=== PATIENT | female | born 1945 | race Caucasian/White ===

== ENCOUNTER 2016-12-05 16:25 | Inpatient (IN) ==
[2016-12-05] MEDS ORDERED: 0.9 % Sodium Chloride 1,000 ML IVC ONE ×2 (16:45→22:30)
--- NOTE | 2016-12-05 17:25 | Emergency Department Note ---
Disposition Clinical Impression: A-fib, HCAP (healthcare-associated pneumonia) Disposition: Admitted As Inpatient Condition: Fair Referrals: Andrez Thomas MD [Primary Care Provider] - Forms: ED Satisfaction Letter Time of Disposition: 19:53 SOB HPI - General Chief Complaint: ED Shortness of Breath/Dyspnea Stated Complaint: Pnuemonia,Low B/P Time Seen by Provider: 12/05/16 16:43 Source: patient Mode of arrival: ambulatory Limitations: no limitations Nursing Notes Reviewed: Yes Vital Signs Reviewed: Yes - History of Present Illness Patient presenting to the ED from her primary care physician's office for suspected pneumonia. Vision, states she has not felt well for about a week has had a fever of 101, documented at physician's office. Productive cough with yellow and green sputum , chest tightness and shortness of breath. Some nausea, no vomiting. No headache, changes in vision. States she has not had pneumonia before. About a week ago she had a robotic colon surgery by Dr. Roca was in the hospital for 2- 3 days. States she started feeling unwell after that. Also complaining of generalized weakness. - Related Data Home Medications Medication Instructions Recorded Confirmed Albuterol Sulfate [Albuterol 2 puff IH Q4HR PRN 11/07/16 12/05/16 Inhaler] Ascorbic Acid [Vitamin C] 1,000 mg PO DAILY 11/07/16 12/05/16 Aspirin 81 mg PO DAILY 11/07/16 12/05/16 Atorvastatin Calcium [Lipitor] 20 mg PO DAILY 11/07/16 12/05/16 Mv-Mn/FA/Vit K/Lycop/Lut/Coq10 1 tab PO DAILY 11/07/16 12/05/16 [Daily Multivitamin Capsule] Albuterol Neb [Proventil Neb] 2.5 mg IH Q4H PRN 12/05/16 12/05/16 Previous Rx's Medication Instructions Recorded Oxycodone HCl/Acetaminophen 1 each PO Q6HR PRN #24 tablet 11/28/16 [Percocet 5-325 mg Tablet] Allergies Allergy/AdvReac Type Severity Reaction Status Date / Time No Known Allergies Allergy Verified 12/05/16 16:32 All systems ED: reviewed and negative except as stated. Constitutional: Reports: fever, chills, weakness Eyes: Denies: vision change Cardiovascular: Reports: chest pain Respiratory: Reports: cough, dyspnea, sputum production Gastrointestinal: Reports: nausea. Denies: abdominal pain, vomiting Musculoskeletal: Denies: back pain Neurological: Denies: headache Past Medical History - Past Medical History Attestation: Yes The following information was validated with the patient. Source: patient Medical history: Reports: asthma, COPD, CVA, hyperlipidemia, hypertension Surgical history: Reports: appendectomy, orthopedic, other Psychiatric history: Reports: no psych history - Social History Smoking Status: Current every day smoker Smokeless Tobacco Status: No Alcohol use: Reports: none Drug use: Reports: none Physical Exam - General Limitations: no limitations General appearance: alert, in no apparent distress - Head Head exam: atraumatic, normocephalic, normal inspection - Respiratory Respiratory exam: Present: other (Course breath sounds bilaterally). Absent: normal lung sounds bilaterally - Cardiovascular Cardiovascular exam: Present: tachycardia, irregular rhythm. Absent: systolic murmur - Abdominal Exam Abdominal exam: Present: soft, Non-Tender. Absent: tenderness, distention, guarding, rebound, rigidity - Extremities Exam Extremities exam: Present: normal inspection, full ROM. Absent: tenderness, pedal edema - Back Exam Back exam: Present: normal inspection, full ROM. Absent: tenderness - Neurological Exam Neurological exam: Present: alert, oriented X3 - Psychiatric Psychiatric exam: Present: normal affect, normal mood - Skin Skin exam: Present: warm, dry, intact, normal color Course - Reevaluation(s) Reevaluation #1: Patient has bilateral pneumonia, new onset A. fib with RVR. Heart rate improved after fluids. Unsure of her EF. Patient also hypoxic initially saturating well on 2 L of oxygen. Could potentially be hospital-acquired pneumonia due to recent surgery. We will treat as such and admit to the hospitalist service. Magnesium was also low, so we will replace that. We will hold off on any calcium channel milagro or beta milagro at this time to see how she responds to fluids and antibiotics. Family and patient agreeable with admission Time: 19:51 Vital Signs Temperature 99.0 F 12/05/16 16:30 Pulse Rate 168 12/05/16 16:30 Respiratory Rate 18 12/05/16 16:30 Blood Pressure 98/68 12/05/16 16:30 O2 Sat by Pulse Oximetry 90 12/05/16 16:30 Temperature 99.0 F 12/05/16 16:30 Pulse Rate 168 12/05/16 16:30 Respiratory Rate 18 12/05/16 16:30 Blood Pressure 98/68 12/05/16 16:30 O2 Sat by Pulse Oximetry 90 12/05/16 16:30 Oxygen Delivery Oxygen Delivery Room Air Shortness of Breath/Dyspnea - Medical Records Medical records reviewed: Yes I reviewed the patient's medical records. - Lab Data Lab results reviewed: Yes I reviewed the patient's lab results. Result diagrams: 12/05/16 17:26 12/05/16 17:26 Lab Results 12/05/16 12/05/16 12/05/16 Range/Units 16:52 17:26 17:26 WBC 11.5 H (4.3-11.1) K/mcL RBC 3.89 (3.82-4.97) M/mcL Hgb 12.3 (11.5-15.4) g/dL Hct 38.4 (35.3-44.9) % MCV 98.7 (83.0-100.0) fL MCH 31.6 (28.0-33.3) pg MCHC 32.0 (31.6-35.5) g/dL RDW 12.7 (11.5-14.5) % Plt Count 209 (140-400) K/mcL MPV 10.1 (9.4-12.4) fL Immature Gran % 0.5 (0-4) % Seg Neutrophils % 75.6 % Lymphocytes % 12.5 % Monocytes % 11.0 % Eosinophils % 0.1 % Basophils % 0.3 % Neutrophils # 8.7 (1.6-8.9) K/mcL Lymphocytes # 1.4 (0.6-4.6) K/mcL Monocytes # 1.3 (0.0-1.3) K/mcL Eosinophils # 0.0 (0.0-0.6) K/mcL Basophils # 0.0 (0.0-0.2) K/mcL Immature Plt Fraction 3.9 (1.1-6.1) % Sodium 136 (136-145) mEq/L Potassium 4.1 (3.5-4.5) mEq/L Chloride 100 (98-109) mEq/L Carbon Dioxide 26 (19-29) mEq/L BUN 10 (7-20) mg/dL Creatinine 0.60 (0.57-1.11) mg/dL Est GFR ( Amer) > 60 (> 60) Est GFR (Non-Af Amer) > 60 (> 60) BUN/Creatinine Ratio 17 (6-26) Glucose 100 H (70-99) mg/dL Calculated Osmolality 281 (280-300) Lactic Acid (0.5-2.2) mmol/L Calcium 8.8 (8.6-10.8) mg/dL Magnesium 1.1 L (1.6-2.6) mg/dL Troponin I (0-0.03) ng/mL TSH 0.657 (0.350-4.840) mcIU/mL Specimen Rejected MCV Delta 12/05/16 12/05/16 Range/Units 17:26 17:26 WBC (4.3-11.1) K/mcL RBC (3.82-4.97) M/mcL Hgb (11.5-15.4) g/dL Hct (35.3-44.9) % MCV (83.0-100.0) fL MCH (28.0-33.3) pg MCHC (31.6-35.5) g/dL RDW (11.5-14.5) % Plt Count (140-400) K/mcL MPV (9.4-12.4) fL Immature Gran % (0-4) % Seg Neutrophils % % Lymphocytes % % Monocytes % % Eosinophils % % Basophils % % Neutrophils # (1.6-8.9) K/mcL Lymphocytes # (0.6-4.6) K/mcL Monocytes # (0.0-1.3) K/mcL Eosinophils # (0.0-0.6) K/mcL Basophils # (0.0-0.2) K/mcL Immature Plt Fraction (1.1-6.1) % Sodium (136-145) mEq/L Potassium (3.5-4.5) mEq/L Chloride (98-109) mEq/L Carbon Dioxide (19-29) mEq/L BUN (7-20) mg/dL Creatinine (0.57-1.11) mg/dL Est GFR ( Amer) (> 60) Est GFR (Non-Af Amer) (> 60) BUN/Creatinine Ratio (6-26) Glucose (70-99) mg/dL Calculated Osmolality (280-300) Lactic Acid 0.9 (0.5-2.2) mmol/L Calcium (8.6-10.8) mg/dL Magnesium (1.6-2.6) mg/dL Troponin I 0.01 (0-0.03) ng/mL TSH (0.350-4.840) mcIU/mL Specimen Rejected - Radiology Data Radiology results reviewed: Yes I reviewed the patient's radiology results. - EKG Data EKG attestation: Yes I reviewed and interpreted this EKG. EKG results narrative: A. fib with RVR, rate 163, QRS 85, QTC 350, normal axis, diffuse ST segment depression, but no acute ischemic changes. Previous EKG shows sinus rhythm, rate 78 on 11/22/16
--- NOTE | 2016-12-05 17:25 | Emergency Department Note ---
START Narrative - START START: I examined this patient and my medical decision-making was reviewed with the VISUAL DESIGN LEAD/PA/Advanced Practice Nurse/Resident Physician. I agree with the documented findings, disposition and treatment plan as described except to the extent set forth below. ED attending note: Patient seen with emergency medicine resident Dr. ORTA. We independently evaluated the patient. We independently had [id number] contact with the patient. Please see a copy of his note for details of the history and physical, evaluation, management and disposition of this emergency Department patient. Briefly: 71 old female recently status post robotic bowel resection comes in with cough and mild shortness of breath. Borderline low blood pressure to systolic of 98. Patient get a CT to exclude pulmonary embolus him. And other screening labs. An IV fluid bolus. Providing 45 minutes critical care services to this patient. Disposition pending.
[2016-12-05 17:39] LABS: Basophils % 0.3 %; Eosinophils % 0.1 %; Hematocrit 38.4 % (35.3-44.9); Immature Granulocytes % 0.5 % (0-4); Immature Platelets 3.9 % (1.1-6.1); Lymphocytes # 1.4 K/mcL (0.6-4.6); Lymphocytes % 12.5 %; Mean Corpuscular Hemoglobin 31.6 pg (28.0-33.3); Mean Corpuscular Volume 98.7 fL (83.0-100.0); Mean Platelet Volume 10.1 fL (9.4-12.4); Monocytes # 1.3 K/mcL (0.0-1.3); Neutrophils # 8.7 K/mcL (1.6-8.9); Platelet Count 209 K/mcL (140-400); Red Blood Count 3.89 M/mcL (3.82-4.97); Red Cell Distribution Width 12.7 % (11.5-14.5); Segmented Neutrophils % 75.6 %
[2016-12-05 17:40] LABS: Hemoglobin 12.3 g/dL (11.5-15.4)
[2016-12-05 17:51] LABS: BUN/Creatinine Ratio 17 (6-26); Blood Urea Nitrogen 10 mg/dL (7-20); Calcium 8.8 mg/dL (8.6-10.8); Carbon Dioxide 26 mEq/L (19-29); Chloride 100 mEq/L (98-109); Glucose 100 mg/dL (70-99); Osmolality,Calculated 281 (280-300); Potassium 4.1 mEq/L (3.5-4.5); Sodium 136 mEq/L (136-145); eGFR For African Americans > 60 (> 60); eGFR For Non-African Americans > 60 (> 60)
[2016-12-05 18:01] LABS: Magnesium 1.1 mg/dL (1.6-2.6)
[2016-12-05 18:28] LABS: Thyroid Stimulating Hormone 0.657 mcIU/mL (0.350-4.840)
[2016-12-05] MEDS ORDERED: Piperacillin/Tazobactam 4.5 GM in D5% in Water (Mini-Bag+) 100 ML IVPB ONE (19:37)
[2016-12-05] MEDS ORDERED: Vancomycin 1,000 MG in D5% in Water 250 ML IVPB ONE (19:37)
[2016-12-05] MEDS ORDERED: Levofloxacin 750 MG/150 ML 750 MG/150 ML BAG IVPB ONE (19:37)
--- NOTE | 2016-12-05 20:50 | Internal Med History&Physical ---
Date of Encounter: 12/06/16 Time of Encounter: 20:15 Assessment and Plan (1) Sepsis Current visit: Yes Status: Acute Patient presents to [facility] with report of productive cough, fever, after recent bowel resection surgery one week ago. Found to be in atrial fibrillation with RVR at presentation and slightly hypotensive but not far from her baseline. Lactic acid normal and hypotension could be due to a fibrillation with RVR, not necessarily sepsis. Patient has been having low normal blood pressures since presentation to [place], around 100/60. She has received 2 L fluid bolus so far with mild improvement seen in patient blood pressure. It did appear as if patient blood pressure improved after improvement the patient heart rate seen. Patient hypertension likely related to tachycardia, but could also be due to sepsis. She has no known history of CHF, CKD, or cirrhosis. We will start vancomycin, Zosyn, Levaquin Tylenol as needed for fever We will monitor white count with daily CBC Patient given 2 L bolus normal saline we will continue fluids at 100 mL an hour Consider additional fluid boluses if continued hypertension is seen Treated for COPD exacerbation Continuous pulse oximetry Sputum cultures, respiratory culture, blood cultures, strep/Legionella antigens , influenza antigen Qualifiers: Sepsis type: sepsis due to unspecified organism Qualified Code(s): A41.9 - Sepsis, unspecified organism (2) HCAP (healthcare-associated pneumonia) Current visit: Yes Status: Acute Likely pneumonia seen on chest CT, given patient recent hospitalization for partial bowel resection one week ago, will treat as healthcare acquired pneumonia. Plan as above (3) Atrial fibrillation with RVR Current visit: Yes Status: Acute Patient present with heart rate in the 160s, has since improved spontaneously and is now down to 110. Patient rhythm is still irregular. Atrial fibrillation is new to this patient, her current RVR likely due to current respiratory status/infection. We will start heparin drip Consider digoxin if continued spikes in heart rate because of patient blood pressure We will monitor patient heart rate/rhythm the continuous telemetry (4) Hypotension Current visit: Yes Status: Acute As above Qualifiers: Hypotension type: unspecified hypotension type Qualified Code(s): I95.9 - Hypotension, unspecified (5) COPD exacerbation Current visit: Yes Status: Acute Although patient not having any shortness of breath, appears slightly hypoxic with increased oxygen need, wheezes on auscultation, and appearance of pneumonia (HAP) on CT examination. Will treat as COPD exacerbation. Breathing treatments with duo nebs scheduled every 4 hours and when necessary 40 mg Solu-Medrol every 6 hours Patient on Levaquin, echo mycin, and Zosyn as she been for HAP (6) S/P laparoscopic colectomy Current visit: No Status: Acute Patient 1 week status post robotic, laparoscopic partial colectomy due to unresectable, precancerous polyps seen on colonoscopy. Patient is postop follow -up with Dr. Roca tomorrow to assess potential removal of surgical christi. We will ask front office secretary contact Dr. Roca tomorrow to assess his desire to see patient Surgical incisions appear intact, well-healed, clean, dry, without induration and some slight ecchymoses surrounding (7) Hypomagnesemia Current visit: Yes Status: Acute Patient should have magnesium of 1.1 with admission lab work. Given 2 g supplement magnesium. We will reassess patient magnesium in a.m. and consider additional magnesium supplementation at that time (8) DVT prophylaxis Current visit: Yes Status: Acute Patient will be placed on heparin drip on account of new onset atrial fibrillation with RVR Internal Medicine - H&P: HPI Chief complaint: Cough, fever, a. fib rvr, and hypotension Admitted From: Home Plans for Post Hospital Care: Home History of present illness: Ms. Steinberg is a 71 year old female with prior medical history of asthma, COPD, prior CTA, in one week status post bowel resection who presents to [facility] after having worsening cough and fever. Patient underwent robotic bowel resection one week ago with Dr. Roca, and his postop follow-up tomorrow, because of unresectable, precancerous polyps seen on colonoscopy. She reports that since the procedure she has been having worsening cough that has been productive of yellow/green phlegm. This is worsening for the past week patient reports that she has had fever at home with high 101.3. She does not complain of any shortness of breath, but states she feels some fatigue as well as weakness when ambulating. She denies any mental status changes or loss of consciousness, denies chest pain, denies feeling faint or lightheadedness. She denies any urinary symptoms, constipation/diarrhea, blood in her stool. Past Med Surg Social Fam HX - Past Medical History Medical history: asthma, COPD, CVA, hyperlipidemia, hypertension Psychiatric history: no psych history - Past Surgical History Surgical History: appendectomy, orthopedic, other - Social History Smoking Status: Current every day smoker Smokeless Tobacco Status: No Alcohol use: none Drug use: none Internal Medicine - H&P: Meds Albuterol Sulfate [Albuterol Inhaler] 2 puff IH Q4HR PRN 11/07/16 [History] Ascorbic Acid [Vitamin C] 1,000 mg PO DAILY 11/07/16 [History] Aspirin 81 mg PO DAILY 11/07/16 [History] Atorvastatin Calcium [Lipitor] 20 mg PO DAILY 11/07/16 [History] Mv-Mn/FA/Vit K/Lycop/Lut/Coq10 [Daily Multivitamin Capsule] 1 tab PO DAILY 11/07 [History] Oxycodone HCl/Acetaminophen [Percocet 5-325 mg Tablet] 1 each PO Q6HR PRN #24 tablet 11/28/16 [Rx] Albuterol Neb [Proventil Neb] 2.5 mg IH Q4H PRN 12/05/16 [History] 3 Allergy/AdvReac Type Severity Reaction Status Date / Time No Known Allergies Allergy Verified 12/05/16 16:32 Review of systems: Gen: Denies fever, denies chills, denies weakness, reports fatigue CV: Denies chest pain, denies exertional chest pain or dyspnea, denies palpitations Resp: Denies shortness of breath, denies dyspnea, denies pleuritic pain, reports cough productive of greenish sputum, denies wheeze GI: Denies nausea, denies vomiting, denies abdominal pain, denies constipation, denies diarrhea, denies hematochezia, denies melena MSK: denies arthralgia, reports general fatigue and weakness with exertion Neuro: Denies headache, denies confusion, denies focal weakness, denies numbness , denies tingling, denies vision changes Skin: Denies bruising, denies rash : Denies flank pain, denies dysuria, denies hematuria - Constitutional Vitals: Temp Pulse Resp BP Pulse Ox 99.0 F 110 26 105/63 94 12/05/16 16:30 12/05/16 20:30 12/05/16 20:44 12/05/16 20:44 12/05/16 20:30 Exam: General: Cooperative, pleasant, no acute distress, alert and oriented 3, answers questions appropriately HEENT: Normocephalic, atraumatic, neck supple, trachea midline, Conjunctiva pink , sclera anicteric, PERRL, oral mucosa moist, no orophargeal erythema or exudates Respiratory: No accessory muscle usage, mild right basilar rales on auscultation Cardiovascular: Irregular rhythm, tachycardia, S1 and S2 present, no murmurs/ rubs/gallops/clicks appreciated GI/abdominal: Nondistended, nontender, soft, normal bowel sounds, no peritoneal signs, for healed/healing surgical incisions are closed with christi, intact, dry, no erythema or induration Extremities: No calf tenderness, noncyanotic, no pedal edema appreciated, warm, lower extremity pulses palpable and symmetrical Neurological: Alert and oriented 3, no facial droop, no focal deficits Skin: Dry, healing surgical incisions on abdomen with christi, intact, with slight bruising surrounding Internal Med - H&P Results - Labs CBC & Chem 7: 12/05/16 17:26 12/05/16 17:26
[2016-12-05] MEDS ORDERED: *HR* Heparin 5,000 UNIT/ML VIAL IVP ONE (20:51)
[2016-12-05] MEDS ORDERED: Naloxone 0.4 MG/ML INJ IVP PRN (20:51)
[2016-12-05] MEDS ORDERED: Ondansetron 4 MG/2 ML VIAL IVP PRN (20:51)
[2016-12-05] MEDS ORDERED: *HR* Heparin 5,000 UNIT/ML VIAL IVP PRN ×2 (20:51)
[2016-12-05] MEDS ORDERED: Acetaminophen 325 MG TABLET PO PRN (20:51)
[2016-12-05] MEDS ORDERED: Ipratropium/Albuterol Neb 3 ML IH PRN (20:58)
[2016-12-05] MEDS ORDERED: Vancomycin (wt based) 1,000 MG VIAL IVPB SCH (21:00)
[2016-12-05] MEDS ORDERED: *HR* OxyCODONE/APAP 5/325 TABLET PO PRN (21:00)
[2016-12-05] MEDS: Heparin 25,000 UNIT/500 ML D5W 25,000 UNIT/500 ML MLS IVC SCH (22:07)
[2016-12-05] MEDS: 0.9 % Sodium Chloride 1,000 ML IVC SCH (22:12)
--- NOTE | 2016-12-05 23:06 | Event Note ---
Date of Encounter: 12/05/16 Time of Encounter: 23:04 Patient and examined with biomedical service engineer. Will treat for healthcare associated pneumonia. She also has new onset a fib. ChadVasc score is at least 4 Due to age prior CVA and female. When anticoagulated the patient. Cardiology input for new onset AFib. No obvious contraindication to anticoagulation. She had history of precancerous polyp and that was removed
[2016-12-06] MEDS ORDERED: Piperacillin/Tazobactam 3.375 GM in D5% in Water (Mini-Bag+) 100 ML IVPB SCH
[2016-12-06] MEDS ORDERED: Ipratropium/Albuterol Neb 3 ML IH SCH
[2016-12-06] MEDS: MethylPREDNISolone 40 MG/ML VIAL IVP SCH ×4 (00:30→17:36)
[2016-12-06] MEDS: Piperacillin/Tazobactam 3.375 GM in D5% in Water (Mini-Bag+) 100 ML IVPB SCH ×3 (02:47→17:48)
[2016-12-06 06:01] LABS: Basophils % 0.1 %; Hematocrit 38.7 % (35.3-44.9); Hemoglobin 12.5 g/dL (11.5-15.4); Immature Granulocytes % 0.4 % (0-4); Lymphocytes # 0.6 K/mcL (0.6-4.6); Mean Corpuscular HGB Conc 32.3 g/dL (31.6-35.5); Mean Corpuscular Hemoglobin 32.6 pg (28.0-33.3); Mean Corpuscular Volume 100.8 fL (83.0-100.0); Mean Platelet Volume 10.1 fL (9.4-12.4); Monocytes # 0.1 K/mcL (0.0-1.3); Monocytes % 1.4 %; Neutrophils # 6.2 K/mcL (1.6-8.9); Platelet Count 184 K/mcL (140-400); Red Blood Count 3.84 M/mcL (3.82-4.97); Red Cell Distribution Width 12.7 % (11.5-14.5); Segmented Neutrophils % 89.1 %
[2016-12-06 06:12] LABS: BUN/Creatinine Ratio 15 (6-26); Blood Urea Nitrogen 9 mg/dL (7-20); Calcium 8.6 mg/dL (8.6-10.8); Carbon Dioxide 28 mEq/L (19-29); Chloride 104 mEq/L (98-109); Glucose 157 mg/dL (70-99); Magnesium 1.6 mg/dL (1.6-2.6); Osmolality,Calculated 292 (280-300); Phosphorous 2.8 mg/dL (2.3-4.7); Potassium 4.3 mEq/L (3.5-4.5); Sodium 140 mEq/L (136-145); eGFR For African Americans > 60 (> 60); eGFR For Non-African Americans > 60 (> 60)
[2016-12-06] MEDS: Vancomycin 1,000 MG in D5% in Water 250 ML IVPB SCH ×2 (06:43→20:38)
[2016-12-06] MEDS: Aspirin 81 MG TAB.CHEW PO SCH ×2 (09:13→13:44)
[2016-12-06] MEDS: Ascorbic Acid 500 MG TABLET PO SCH ×2 (09:13→13:43)
[2016-12-06] MEDS: Pantoprazole 40 MG VIAL IVP SCH (09:13)
[2016-12-06] MEDS: Multivit/Ca/Min/Fe/FA 1 TAB TABLET PO SCH ×2 (09:13→13:42)
--- NOTE | 2016-12-06 10:00 | Cardiology Consult Note ---
Date of Encounter: 12/06/16 Time of Encounter: 09:10 Assessment and Plan (1) Atrial fibrillation with RVR Current Visit: Yes Status: Acute -[id number] score of 5 points (age, sex, HTN, CVA) puts pt at moderate-high risk for stroke, making her a candidate for anticoagulation. -Currently anticoagulated with IV heparin. -Plan to put on anticoagulation as an outpatient, preferably with new oral anticoagulant agent like Xarelto. -Echo ordered to determine whether or not valvular dysfunction is present and what pt's LVEF is. No previous echo for comparison found. -Cardizem 30mg PO q6h for rhythm control. First dose to be given prior to echo. -Continue cardiac monitoring. Discussion w patient/family: The assessment and plan as outlined above was discussed with the patient and/or family members who expressed understanding and agreement. All questions were answered. Thank you for involving us in the care of your patient. Please call with any questions. History of Present Illness Consult date: 12/06/16 Requesting physician: Sharan Laughlin Consult reason: new onset Afib with RVR History of present illness: -Ms. Steinberg is a 71 year old female with recent h/o colon surgery and PMH of HTN, CVA, HLD, COPD, and asthma who presented to [place] ED yesterday after seeing PCP with c/o CP, cough with purulent sputum, SOB, chills, and generalized weakness with temp 101 F. On her arrival to the ED she was found to have tachycardia (168 bpm), borderline low BP (98/68), SpO2 90%, and new onset Afib with RVR. IV fluids were given, pt's blood pressure and heart rate improved , and she was placed on supplemental oxygen 2L nasal cannula. -EKG showed Afib with RVR, diffuse ST segment depression, normal axis, and no acute ischemic changes. EKG performed on 11/22/16 showed normal sinus rhythm and normal rate. Her CXR was read as suspicious for pneumonia showing right basilar airspace disease. CT angiogram performed, showed no evidence for pulmonary embolism, but there was right-sided effusion (greater on right side) with bibasilar airspace disease. -Cardiology consult made for new onset Afib with RVR. Based on pt's risk factors (age, sex, HTN, CVA) and [id number] score, she is at moderate risk for another stroke. Past Med Surg Social Fam HX - Past Medical History Medical history: asthma, COPD, CVA, hyperlipidemia, hypertension Psychiatric history: no psych history - Past Surgical History Surgical History: appendectomy, orthopedic, other - Social History Smoking Status: Current every day smoker Smokeless Tobacco Status: No Alcohol use: none Drug use: none Medications and Allergies Albuterol Sulfate [Albuterol Inhaler] 2 puff IH Q4HR PRN 11/07/16 [History] Ascorbic Acid [Vitamin C] 1,000 mg PO DAILY 11/07/16 [History] Aspirin 81 mg PO DAILY 11/07/16 [History] Atorvastatin Calcium [Lipitor] 20 mg PO DAILY 11/07/16 [History] Mv-Mn/FA/Vit K/Lycop/Lut/Coq10 [Daily Multivitamin Capsule] 1 tab PO DAILY 11/07 [History] Oxycodone HCl/Acetaminophen [Percocet 5-325 mg Tablet] 1 each PO Q6HR PRN #24 tablet 11/28/16 [Rx] Albuterol Neb [Proventil Neb] 2.5 mg IH Q4H PRN 12/05/16 [History] 3 Allergy/AdvReac Type Severity Reaction Status Date / Time No Known Allergies Allergy Verified 12/05/16 16:32 All Systems Review: A 10-system review of systems was performed and is negative for pertinent findings except as documented above in the HPI. - Constitutional Constitutional: no chills, no fatigue, no fever(s) - Cardiovascular Cardiovascular: no chest pain at rest, no chest pain with exertion, no diaphoresis, no dyspnea at rest, no dyspnea on exertion, no irregular heart rhythm, no leg edema, no palpitations, no rapid heart rate - Respiratory Respiratory: cough, dyspnea (greatly improved since yesterday), no wheezing - Gastrointestinal Gastrointestinal: other (no emesis), no abdominal pain, no constipation, no diarrhea, no nausea Physical Examination Vital Signs, Last 4 Hours Temp Pulse Resp BP Pulse Ox 12/06/16 06:53 98 F 99 16 110/63 94 -At time of my exam: HR upper 90s to 110s, BP 110/67, pulse ox 94% General: Conversant, No Apparent Distress HEENT: Atraumatic, Normocephaly Cardiac: Reg Rate and Rhythm, Normal S1 and S2, No Murmur Lungs: Other (normal respiratory effort, cough, faint wheezing heard b/l; no rales) Neuro: Alert and responsive, No focal deficits noted Skin: No rashes noted on visualized skin Extremities: No Edema, Normal Pulses (dorsalis pedis pulses palpable bilaterally ) Results 12/06/16 05:43 12/06/16 05:43 Lab Results 12/06/16 12/06/16 12/06/16 05:43 05:43 06:36 WBC 6.9 Hgb 12.5 Hct 38.7 Plt Count 184 APTT 53.4 H Sodium 140 Potassium 4.3 Chloride 104 Carbon Dioxide 28 BUN 9 Creatinine 0.60 Glucose 157 H Calcium 8.6 Magnesium 1.6 - Imaging and Cardiology Chest Xray: report reviewed - EKG Interpretation EKG results cardiology: personally reviewed (Atrial fibrillation w/ RVR, diffuse ST segment depression, no acute ischemic changes. Comparison EKG 11/22/16 : NSR and regular rate) Consult Discharge Plan - Plan Referrals: Andrez Thomas MD [Primary Care Provider] -
[2016-12-06] MEDS: 0.9 % Sodium Chloride 1,000 ML IVC SCH (10:56)
--- NOTE | 2016-12-06 14:22 | Electrocardiograph Report ---
[address] [address] Test Date: 2016-12-05 Pat Name: Tova Steinberg Department: 102 Room: 2NE26 Gender: F Structural Engineering Project Manager: Nette : 1945 Requested By: Roldan Owens Order Number: [id number] Reading MD: Taryn Javed Measurements Intervals [place] Rate: 163 P: OR: 0 QRS: 46 QRSD: 85 T: 52 QT: 260 QTc: 350 Interpretive Statements ATRIAL FIBRILLATION WITH RAPID VENTRICULAR RESPONSE POSSIBLE RIGHT VENTRICULAR CONDUCTION DELAY [RSR (QR) IN V1/V2] MODERATE ST DEPRESSION [0.05+ mV ST DEPRESSION] Electronically Signed On 12-06-2016 14:21:26 EDT by Taryn Javed
[2016-12-06] MEDS ORDERED: Warfarin perPT PO PRN (18:00)
[2016-12-06] MEDS ORDERED: *HR* Warfarin 5 MG TABLET PO SCH (18:30)
--- NOTE | 2016-12-06 19:44 | Internal Med Progress Note ---
Date of Encounter: 12/06/16 Time of Encounter: 10:00 - Assessment and plan (1) DVT prophylaxis Current Visit: Yes Status: Acute Assessment and plan: Patient is on heparin drip. Need long-term anti-coagulation later per cardiology (2) S/P laparoscopic colectomy Current Visit: No Status: Acute (3) HCAP (healthcare-associated pneumonia) Current Visit: Yes Status: Acute Assessment and plan: Continue treatment patient with Vanco, Zosyn, and Levaquin. Patient is at high risk because he is on vancomycin and heparin drip, need close monitoring. (4) Atrial fibrillation with RVR Current Visit: Yes Status: Acute Assessment and plan: Rate is well controlled. Cardizem drip has been discontinued and switched to by mouth Cardizem. Patient is on heparin drip now, need long-term anticoagulation. Cardiology consult appreciated. (5) COPD exacerbation Current Visit: Yes Status: Acute Assessment and plan: We will continue antibiotic, steroid, and bronchodilator. Patient has no wheezing on auscultation today. (6) Hypomagnesemia Current Visit: Yes Status: Acute Assessment and plan: Improved after treatment - Time Spent With Patient Greater than 35 minutes - Subjective Interval history: Patient is a 71-year-old female admitted for pneumonia and A. fib RVR. Past medical history is significant for COPD, CVA, hypertension, hyperlipidemia. Patient was seen and examined. Doing fine. Denies shortness of breath, chest pain, or palpitation. Still A. fib but rate is well controlled. Her vitals are stable. - Constitutional Vitals: Temp Pulse Resp BP Pulse Ox 98 F 106 18 110/49 93 12/06/16 16:30 12/06/16 16:30 12/06/16 16:30 12/06/16 16:30 12/06/16 16:30 General appearance: Present: A&O X 3, pleasant, no acute distress, answers questions appropriately - Head Head exam: Present: atraumatic, normocephalic - Eye Eye exam: Present: PERRL, conjuntiva pink, sclera anicteric Pupils: Present: PERRL - Neck Neck exam general surgery: Present: supple, trachea midline. Absent: lymphadenopathy - Respiratory Respiratory exam: Present: CTAB. Absent: accessory muscle use, rales, rhonchi, wheezes - Cardiovascular Cardiovascular exam: Present: irregular rhythm, +S1, +S2. Absent: diastolic murmur, gallop, rubs, systolic murmur - GI/Abdominal GI/Abdominal exam: Present: normal bowel sounds, soft, no peritoneal signs. Absent: distended, tenderness - Extremities Exam Extremities exam: Present: warm, radial pulses palpable and symmetrical. Absent : calf tenderness, cyanotic, pedal edema - Neurological Exam Neurological exam: Present: CN II-XII intact, oriented X3, no focal deficits. Absent: pronater drift, facial droop, speech deficit - Skin Skin exam: Present: dry, intact Internal Medicine: Result - Labs CBC & Chem 7: 12/06/16 05:43 12/06/16 05:43 Labs: Short CBC 12/06/16 Range/Units 05:43 WBC 6.9 (4.3-11.1) K/mcL Hgb 12.5 (11.5-15.4) g/dL Hct 38.7 (35.3-44.9) % Plt Count 184 (140-400) K/mcL Neutrophils # 6.2 (1.6-8.9) K/mcL BMP 12/06/16 05:43 Sodium 140 Potassium 4.3 Chloride 104 Carbon Dioxide 28 BUN 9 Creatinine 0.60 Glucose 157 H Calcium 8.6 Consult Discharge Plan - Plan Referrals: Andrez Thomas MD [Primary Care Provider] -
[2016-12-06] MEDS: Levofloxacin 500 MG/100 ML 500 MG/100 ML BAG IVPB SCH (20:37)
[2016-12-07] MEDS: Piperacillin/Tazobactam 3.375 GM in D5% in Water (Mini-Bag+) 100 ML IVPB SCH ×2 (01:15→10:22)
[2016-12-07] MEDS: MethylPREDNISolone 40 MG/ML VIAL IVP SCH ×4 (01:16→17:27)
[2016-12-07] MEDS: Heparin 25,000 UNIT/500 ML D5W 25,000 UNIT/500 ML MLS IVC SCH (01:16)
[2016-12-07] MEDS: 0.9 % Sodium Chloride 1,000 ML IVC SCH (05:39)
[2016-12-07] MEDS: Multivit/Ca/Min/Fe/FA 1 TAB TABLET PO SCH (07:50)
[2016-12-07] MEDS: Aspirin 81 MG TAB.CHEW PO SCH (07:50)
[2016-12-07] MEDS: Ascorbic Acid 500 MG TABLET PO SCH (07:50)
[2016-12-07] MEDS: Pantoprazole 40 MG VIAL IVP SCH (07:50)
[2016-12-07 08:25] LABS: Basophils % 0.1 %; Hematocrit 40.9 % (35.3-44.9); Hemoglobin 12.7 g/dL (11.5-15.4); Immature Granulocytes % 0.5 % (0-4); Lymphocytes # 0.9 K/mcL (0.6-4.6); Lymphocytes % 6.4 %; Mean Corpuscular HGB Conc 31.1 g/dL (31.6-35.5); Mean Corpuscular Hemoglobin 31.8 pg (28.0-33.3); Mean Corpuscular Volume 102.5 fL (83.0-100.0); Mean Platelet Volume 10.3 fL (9.4-12.4); Monocytes # 0.4 K/mcL (0.0-1.3); Monocytes % 2.8 %; Neutrophils # 12.4 K/mcL (1.6-8.9); Platelet Count 248 K/mcL (140-400); Red Blood Count 3.99 M/mcL (3.82-4.97); Red Cell Distribution Width 12.7 % (11.5-14.5); Segmented Neutrophils % 90.2 %
[2016-12-07 08:33] LABS: BUN/Creatinine Ratio 17 (6-26); Blood Urea Nitrogen 10 mg/dL (7-20); Calcium 8.9 mg/dL (8.6-10.8); Carbon Dioxide 29 mEq/L (19-29); Chloride 106 mEq/L (98-109); Glucose 141 mg/dL (70-99); Magnesium 1.7 mg/dL (1.6-2.6); Osmolality,Calculated 297 (280-300); Potassium 3.9 mEq/L (3.5-4.5); Sodium 143 mEq/L (136-145); eGFR For African Americans > 60 (> 60); eGFR For Non-African Americans > 60 (> 60)
[2016-12-07 08:41] LABS: Vancomycin,Trough 8.2 mcg/mL (10-20)
--- NOTE | 2016-12-07 08:46 | Cardiology Progress Note ---
Date of Encounter: 12/07/16 Time of Encounter: 09:15 Assessment and Plan (1) Atrial fibrillation with RVR Current Visit: Yes Status: Acute -[id number] score of 5 points (age, sex, HTN, CVA) puts pt at moderate-high risk for stroke, making her a candidate for anticoagulation. -Currently anticoagulated with IV heparin. -Plan to put on anticoagulation as an outpatient, preferably with new oral anticoagulant agent. -Echo ordered to determine whether or not valvular dysfunction is present and what pt's LVEF is. No previous echo for comparison found. -Cardizem 30mg PO q6h for rhythm control. First dose to be given prior to echo. -Continue cardiac monitoring. (12/07/16) -irregular rhythm and rate of 90's to low 100's at time of exam -Echo results: -Technically suboptimal 2/2 poor echocardiographic window -LVEF 55-60% -Diastolic function indeterminate -Moderate pulmonary HTN -Mild dilation of right and left atria -MV structure and function normal; mild tricuspid regurgitation with normal structure; aortic and pulmonic valves not well visualized -Continue Cardizem for rhythm control. Changed Cardizem 30mg q6h to Cardizem CD 120 once daily. -Importance of outpatient anticoagulation discussed with pt; explained that without anticoagulation, pt's h/o stroke and now Afib places her at greater risk for another stroke. -Associated risks and benefits of both coumadin and Eliquis discussed with pt. -Rx for Eliquis 5mg PO twice daily was printed, signed, and placed in pt's chart. Discussion w patient/family: The assessment and plan as outlined above was discussed with the patient and/or family members who expressed understanding and agreement. All questions were answered. Thank you for involving us in the care of your patient. Please call with any questions. Subjective Principal diagnosis: New Afib w/ RVR Interval history: -Pt seen and examined this morning. Pt was resting comfortably in bed, one of her daughters is at bedside. Pt states she feels ok today. She denies chest pain , chest pressure, palpitations, heart racing. She admits cough productive of white sputum. Pt expresses some frustration with not being able to easily move around the room 2/2 her IV pole and monitoring leads. Objective Vital Signs, Last 4 Hours Temp Pulse Resp BP Pulse Ox 12/07/16 06:34 97.8 F 78 16 93/59 95 General: Conversant, No Apparent Distress HEENT: Atraumatic, Normocephaly, Mucus Membranes Moist Cardiac: Normal S1 and S2, No Murmur, Other (regular rate, irregular rhythm) Lungs: Other (diffuse b/l wheezing and rhonchi; wet-sounding cough) Neuro: Alert and responsive, No focal deficits noted Skin: No rashes noted on visualized skin Extremities: No Edema, Normal Pulses (b/l dorsalis pedis pulses palpable and equal) Results 12/07/16 07:55 12/07/16 07:55 Lab Results 12/06/16 12/06/16 12/07/16 15:03 22:15 07:55 WBC Hgb Hct Plt Count APTT 64.0 H 67.0 H Sodium 143 Potassium 3.9 Chloride 106 Carbon Dioxide 29 BUN 10 Creatinine 0.60 Glucose 141 H Calcium 8.9 Magnesium 1.7 12/07/16 07:55 WBC 13.7 H D Hgb 12.7 Hct 40.9 Plt Count 248 APTT Sodium Potassium Chloride Carbon Dioxide BUN Creatinine Glucose Calcium Magnesium - Imaging and Cardiology Echo: report reviewed Consult Discharge Plan - Plan Referrals: Andrez Thomas MD [Primary Care Provider] - Prescriptions: Apixaban [Eliquis] 5 mg PO BID #60 tablet
[2016-12-07] MEDS: Vancomycin 1,000 MG in D5% in Water 250 ML IVPB SCH (08:59)
[2016-12-07] MEDS: Ipratropium/Albuterol Neb 3 ML IH SCH ×3 (13:37→20:19)
--- NOTE | 2016-12-07 14:32 | Event Note ---
Date of Encounter: 12/07/16 Time of Encounter: 14:31 [place] were removed. All surgical incisions are clean, dry, and intact. Bedside RN to place steristrips over previously stapled areas.
--- NOTE | 2016-12-07 16:15 | Internal Med Progress Note ---
Date of Encounter: 12/07/16 Time of Encounter: 10:00 - Assessment and plan (1) DVT prophylaxis Current Visit: Yes Status: Acute Assessment and plan: Patient is on heparin drip. Need long-term anti-coagulation later per cardiology. May switch to Eliquis. Pt will discuss with family to make decision. (2) S/P laparoscopic colectomy Current Visit: No Status: Acute Assessment and plan: Staple removed by surgeon today. (3) HCAP (healthcare-associated pneumonia) Current Visit: Yes Status: Acute Assessment and plan: Continue treatment patient with Vanco, Zosyn, and Levaquin. Taper down steroid. Patient is at high risk because he is on vancomycin and heparin drip, need close monitoring. (4) Atrial fibrillation with RVR Current Visit: Yes Status: Acute Assessment and plan: Rate is well controlled. Cardizem drip has been discontinued and switched to by mouth Cardizem. Patient is on heparin drip now, need long-term anticoagulation. Cardiology consult appreciated. (5) COPD exacerbation Current Visit: Yes Status: Acute Assessment and plan: We will continue antibiotic, steroid, and bronchodilator. Patient has no wheezing on auscultation today. Taper down steroid. (6) Hypomagnesemia Current Visit: Yes Status: Acute Assessment and plan: Improved after treatment - Time Spent With Patient Greater than 35 minutes - Subjective Interval history: Patient is a 71-year-old female admitted for pneumonia and A. fib RVR. Past medical history is significant for COPD, CVA, hypertension, hyperlipidemia. Patient was seen and examined. Still has cough. Denies shortness of breath, chest pain, or palpitation. Still A. fib but rate is well controlled. Her vitals are stable. - Constitutional Vitals: Temp Pulse Resp BP Pulse Ox 98 F 99 18 101/61 80 12/07/16 15:20 12/07/16 15:20 12/07/16 15:44 12/07/16 15:20 12/07/16 15:44 General appearance: Present: A&O X 3, pleasant, no acute distress, answers questions appropriately - Head Head exam: Present: atraumatic, normocephalic - Eye Eye exam: Present: PERRL, conjuntiva pink, sclera anicteric Pupils: Present: PERRL - Neck Neck exam general surgery: Present: supple, trachea midline. Absent: lymphadenopathy - Respiratory Respiratory exam: Present: CTAB. Absent: accessory muscle use, rales, rhonchi, wheezes - Cardiovascular Cardiovascular exam: Present: RRR, +S1, +S2. Absent: diastolic murmur, gallop, rubs, systolic murmur - GI/Abdominal GI/Abdominal exam: Present: normal bowel sounds, soft, no peritoneal signs. Absent: distended, tenderness - Extremities Exam Extremities exam: Present: warm, radial pulses palpable and symmetrical. Absent : calf tenderness, cyanotic, pedal edema - Neurological Exam Neurological exam: Present: CN II-XII intact, oriented X3, no focal deficits. Absent: pronater drift, facial droop, speech deficit - Skin Skin exam: Present: dry, intact Internal Medicine: Result - Labs CBC & Chem 7: 12/07/16 07:55 12/07/16 07:55 Labs: Short CBC 12/07/16 Range/Units 07:55 WBC 13.7 H D (4.3-11.1) K/mcL Hgb 12.7 (11.5-15.4) g/dL Hct 40.9 (35.3-44.9) % Plt Count 248 (140-400) K/mcL Neutrophils # 12.4 H (1.6-8.9) K/mcL BMP 12/07/16 07:55 Sodium 143 Potassium 3.9 Chloride 106 Carbon Dioxide 29 BUN 10 Creatinine 0.60 Glucose 141 H Calcium 8.9 Consult Discharge Plan - Plan Referrals: Andrez Thomas MD [Primary Care Provider] - Prescriptions: Apixaban [Eliquis] 5 mg PO BID #60 tablet
[2016-12-07] MEDS: Levofloxacin 500 MG/100 ML 500 MG/100 ML BAG IVPB SCH (16:51)
[2016-12-07] MEDS: Vancomycin 1,250 MG in D5% in Water 250 ML IVPB SCH (18:54)
[2016-12-07] MEDS ORDERED: Vancomycin 1,250 MG in D5% in Water 250 ML IVPB SCH (19:00)
[2016-12-07] MEDS: APIXABAN 5 MG TABLET PO SCH (21:11)
[2016-12-08] MEDS: Ipratropium/Albuterol Neb 3 ML IH SCH ×3 (00:40→07:56)
[2016-12-08 05:43] LABS: Basophils % 0.1 %; Hematocrit 36.2 % (35.3-44.9); Hemoglobin 11.7 g/dL (11.5-15.4); Immature Granulocytes % 0.6 % (0-4); Lymphocytes # 0.6 K/mcL (0.6-4.6); Lymphocytes % 3.9 %; Mean Corpuscular HGB Conc 32.3 g/dL (31.6-35.5); Mean Corpuscular Hemoglobin 32.6 pg (28.0-33.3); Mean Corpuscular Volume 100.8 fL (83.0-100.0); Mean Platelet Volume 10.3 fL (9.4-12.4); Monocytes # 0.5 K/mcL (0.0-1.3); Monocytes % 3.5 %; Neutrophils # 13.1 K/mcL (1.6-8.9); Platelet Count 231 K/mcL (140-400); Red Blood Count 3.59 M/mcL (3.82-4.97); Red Cell Distribution Width 12.6 % (11.5-14.5); Segmented Neutrophils % 91.9 %
[2016-12-08] MEDS: Vancomycin 1,250 MG in D5% in Water 250 ML IVPB SCH (06:57)
[2016-12-08] MEDS: MethylPREDNISolone 40 MG/ML VIAL IVP SCH (06:57)
[2016-12-08 07:04] LABS: BUN/Creatinine Ratio 17 (6-26); Blood Urea Nitrogen 10 mg/dL (7-20); Calcium 8.6 mg/dL (8.6-10.8); Carbon Dioxide 25 mEq/L (19-29); Chloride 107 mEq/L (98-109); Glucose 147 mg/dL (70-99); Osmolality,Calculated 296 (280-300); Potassium 3.8 mEq/L (3.5-4.5); eGFR For African Americans > 60 (> 60); eGFR For Non-African Americans > 60 (> 60)
[2016-12-08 07:06] LABS: Sodium 142 mEq/L (136-145)
--- NOTE | 2016-12-08 08:02 | Cardiology Progress Note ---
Date of Encounter: 12/08/16 Time of Encounter: 09:30 Assessment and Plan (1) Atrial fibrillation with RVR Current Visit: Yes Status: Acute (12/08/16) -[id number] score puts pt at moderate-high risk for stroke, thus a candidate for anticoagulation. -Rx for Eliquis 5mg PO BID in pt's chart. Associated risks and benefits of Eliquis discussed previously. -Echo results 12/07/16 (no previous echo for comparison): -Technically suboptimal 2/2 poor echocardiographic window -LVEF 55-60% -Diastolic function indeterminate -Moderate pulmonary HTN -Mild dilation of right and left atria -MV structure and function normal; mild tricuspid regurge normal structure; aortic & pulmonic valves not well visualized -Cardizem for rhythm control. -increased HR overnight/early this morning, potentially influenced by albuterol nebs q4h (d/c'd by hospitalist, replaced with levalbuterol nebs q6h) -cardizem CD 120 increased Cardizem CD 180mg once daily. Discussion w patient/family: The assessment and plan as outlined above was discussed with the patient and/or family members who expressed understanding and agreement. All questions were answered. Thank you for involving us in the care of your patient. Please call with any questions. Subjective Principal diagnosis: New Afib w/ RVR Interval history: -Pt seen and examined this morning. Pt was sitting in bed, one of her daughters is at bedside. Pt states she feels alright today. She admits cough but less sputum production. She denies chest pain, chest pressure, palpitations, SOB. Pt and RN state the albuterol nebulizers she has been getting have caused her heart rate to go up and make her feel "shaky"; stating last neb was around 04: 00. Albuterol nebs discontinued by hospitalist this morning. Objective Vital Signs, Last 4 Hours Temp Pulse Resp BP Pulse Ox 12/08/16 07:09 98.0 F 128 18 100/66 94 12/08/16 05:14 17 94 12/08/16 05:01 114 17 103/65 92 General: Conversant, No Apparent Distress Cardiac: Normal S1 and S2, No Murmur, Other (irregular rhythm, rate upper 90's to low 110's.) Lungs: Normal Breath Sounds, Other (cough, normal respiratory effort) Neuro: Alert and responsive Musculoskeletal: No Chest Wall Tenderness Extremities: Normal Pulses (dorsalis pedis palpable b/l) Results 12/08/16 04:59 12/08/16 04:59 Lab Results 12/07/16 12/07/16 12/07/16 07:55 07:55 22:04 WBC 13.7 H D Hgb 12.7 Hct 40.9 Plt Count 248 APTT 40.3 H Sodium 143 Potassium 3.9 Chloride 106 Carbon Dioxide 29 BUN 10 Creatinine 0.60 Glucose 141 H Calcium 8.9 Magnesium 1.7 12/08/16 12/08/16 04:59 04:59 WBC 14.2 H Hgb 11.7 Hct 36.2 Plt Count 231 APTT Sodium 142 Potassium 3.8 Chloride 107 Carbon Dioxide 25 BUN 10 Creatinine 0.58 Glucose 147 H Calcium 8.6 Magnesium Consult Discharge Plan - Plan Referrals: Andrez Thomas MD [Primary Care Provider] - 12/15/16 11:30 am Prescriptions: Apixaban [Eliquis] 5 mg PO BID #60 tablet
[2016-12-08] MEDS ORDERED: 0.9 % Sodium Chloride 500 ML IVC ONE (08:17)
[2016-12-08] MEDS ORDERED: 0.9 % Sodium Chloride 1,000 ML IVC SCH (08:30)
[2016-12-08] MEDS ORDERED: Diltiazem CD (24hr) 120 MG CAPSULE PO SCH (09:00)
[2016-12-08] MEDS: Aspirin 81 MG TAB.CHEW PO SCH (09:12)
[2016-12-08] MEDS: Ascorbic Acid 500 MG TABLET PO SCH (09:12)
[2016-12-08] MEDS: Multivit/Ca/Min/Fe/FA 1 TAB TABLET PO SCH (09:13)
[2016-12-08] MEDS: APIXABAN 5 MG TABLET PO SCH ×2 (09:13→20:44)
[2016-12-08] MEDS: Levalbuterol Neb 0.63 MG/3 ML IH SCH ×3 (10:11→23:07)
[2016-12-08] MEDS ORDERED: Diltiazem SR (12hr) 60 MG CAPSULE PO ONE (12:55)
--- NOTE | 2016-12-08 17:12 | Internal Med Progress Note ---
Date of Encounter: 12/08/16 Time of Encounter: 10:00 - Assessment and plan (1) DVT prophylaxis Current Visit: Yes Status: Acute Assessment and plan: Patient is on Eliquis. (2) S/P laparoscopic colectomy Current Visit: No Status: Acute Assessment and plan: Staple removed by surgeon. (3) HCAP (healthcare-associated pneumonia) Current Visit: Yes Status: Acute Assessment and plan: Continue treatment patient with Levaquin. Taper down steroid. D/C vanco and zosyn as culture negative to MRSA. Continue supportive and symptomatic treatment for cough. (4) Atrial fibrillation with RVR Current Visit: Yes Status: Acute Assessment and plan: Rate is increased again. Cardizem drip has been restarted. Cardiology consult appreciated. (5) COPD exacerbation Current Visit: Yes Status: Acute Assessment and plan: We will continue antibiotic, steroid, and bronchodilator. Patient has no wheezing on auscultation today. Taper down steroid. Switch duoneb to xopenex to minimal HR effect. (6) Hypomagnesemia Current Visit: Yes Status: Acute Assessment and plan: Improved after treatment - Time Spent With Patient 25 - 35 minutes - Subjective Interval history: Patient is a 71-year-old female admitted for pneumonia and A. fib RVR. Past medical history is significant for COPD, CVA, hypertension, hyperlipidemia. Patient was seen and examined. Still has cough. Denies shortness of breath, chest pain. Developed RVR again overnight. Cardizem drip restart. Will DC patient's DuoNeb and change it to xopenex to minimal effect on heart rate. Cardizem CD dose has been increased by cardiology. Continue closely monitor patient - Constitutional Vitals: Temp Pulse Resp BP Pulse Ox 97.8 F 93 18 100/55 94 12/08/16 11:00 12/08/16 11:00 12/08/16 16:32 12/08/16 11:00 12/08/16 16:32 General appearance: Present: A&O X 3, pleasant, no acute distress, answers questions appropriately - Head Head exam: Present: atraumatic, normocephalic - Eye Eye exam: Present: PERRL, conjuntiva pink, sclera anicteric Pupils: Present: PERRL - Neck Neck exam general surgery: Present: supple, trachea midline. Absent: lymphadenopathy - Respiratory Respiratory exam: Present: CTAB. Absent: accessory muscle use, rales, rhonchi, wheezes - Cardiovascular Cardiovascular exam: Present: irregular rhythm, +S1, +S2. Absent: diastolic murmur, gallop, rubs, systolic murmur - GI/Abdominal GI/Abdominal exam: Present: normal bowel sounds, soft, no peritoneal signs. Absent: distended, tenderness - Extremities Exam Extremities exam: Present: warm, radial pulses palpable and symmetrical. Absent : calf tenderness, cyanotic, pedal edema - Neurological Exam Neurological exam: Present: CN II-XII intact, oriented X3, no focal deficits. Absent: pronater drift, facial droop, speech deficit - Skin Skin exam: Present: dry, intact Internal Medicine: Result - Labs CBC & Chem 7: 12/08/16 04:59 12/08/16 04:59 Labs: Short CBC 12/08/16 Range/Units 04:59 WBC 14.2 H (4.3-11.1) K/mcL Hgb 11.7 (11.5-15.4) g/dL Hct 36.2 (35.3-44.9) % Plt Count 231 (140-400) K/mcL Neutrophils # 13.1 H (1.6-8.9) K/mcL BMP 12/08/16 04:59 Sodium 142 Potassium 3.8 Chloride 107 Carbon Dioxide 25 BUN 10 Creatinine 0.58 Glucose 147 H Calcium 8.6 Consult Discharge Plan - Plan Referrals: Andrez Thomas MD [Primary Care Provider] - 12/15/16 11:30 am Prescriptions: Apixaban [Eliquis] 5 mg PO BID #60 tablet
[2016-12-08] MEDS: predniSONE 20 MG TABLET PO SCH (18:14)
[2016-12-08] MEDS: Levofloxacin 750 MG/150 ML 750 MG/150 ML BAG IVPB SCH (18:19)
[2016-12-09] MEDS: Levalbuterol Neb 0.63 MG/3 ML IH SCH ×3 (03:42→16:16)
[2016-12-09] MEDS ORDERED: Levofloxacin 750 MG/150 ML 750 MG/150 ML BAG IVPB SCH (09:00)
[2016-12-09] MEDS ORDERED: Diltiazem CD (24hr) 180 MG CAPSULE PO SCH (09:00)
[2016-12-09] MEDS: Aspirin 81 MG TAB.CHEW PO SCH (09:34)
[2016-12-09] MEDS: Ascorbic Acid 500 MG TABLET PO SCH (09:34)
[2016-12-09] MEDS: Multivit/Ca/Min/Fe/FA 1 TAB TABLET PO SCH (09:35)
[2016-12-09] MEDS: APIXABAN 5 MG TABLET PO SCH (09:35)
[2016-12-09] MEDS: predniSONE 20 MG TABLET PO SCH (09:36)
[2016-12-09] MEDS: Levofloxacin 750 MG/150 ML 750 MG/150 ML BAG IVPB SCH (09:36)
[2016-12-09 10:42] VITALS: BP 109/60
--- NOTE | 2016-12-09 13:27 | Discharge Summary ---
Date of Encounter: 12/09/16 Time of Encounter: 10:00 - Discharge Diagnosis (1) DVT prophylaxis Priority: Secondary Status: Acute (2) S/P laparoscopic colectomy Priority: Secondary Status: Acute (3) HCAP (healthcare-associated pneumonia) Priority: Primary Status: Acute (4) Atrial fibrillation with RVR Priority: Primary Status: Acute (5) COPD exacerbation Priority: Primary Status: Acute (6) Hypomagnesemia Priority: Secondary Status: Acute - Discharge Medications Prescriptions: GuaiFENesin/Dextromethorphan [Robitussin/Dm] 5 ml PO Q6HR #200 ml Levalbuterol Neb [Xopenex Neb] 0.63 mg IH [id number] #30 Apixaban [Eliquis] 5 mg PO BID #60 tablet Diltiazem CD (24hr) [Cardizem CD] 180 mg PO DAILY #30 levoFLOXacin [Levaquin] 750 mg PO DAILY #5 tab predniSONE [PredniSONE] See Taper PO DAILY #10 tab Home Medications: Ascorbic Acid [Vitamin C] 1,000 mg PO DAILY 11/07/16 [History] Aspirin 81 mg PO DAILY 11/07/16 [History] Atorvastatin Calcium [Lipitor] 20 mg PO DAILY 11/07/16 [History] Mv-Mn/FA/Vit K/Lycop/Lut/Coq10 [Daily Multivitamin Capsule] 1 tab PO DAILY 11/07 [History] Oxycodone HCl/Acetaminophen [Percocet 5-325 mg Tablet] 1 each PO Q6HR PRN #24 tablet 11/28/16 [Rx] Apixaban [Eliquis] 5 mg PO BID #60 tablet 12/07/16 [Rx] Diltiazem CD (24hr) [Cardizem CD] 180 mg PO DAILY #30 12/09/16 [Rx] GuaiFENesin/Dextromethorphan [Robitussin/Dm] 5 ml PO Q6HR #200 ml 12/09/16 [Rx] Levalbuterol Neb [Xopenex Neb] 0.63 mg IH [id number] #30 12/09/16 [Rx] Levalbuterol [Xopenex] 1 puff IH QID PRN #1 inhaler 12/09/16 [Rx] levoFLOXacin [Levaquin] 750 mg PO DAILY #5 tab 12/09/16 [Rx] predniSONE [PredniSONE] See Taper PO DAILY #10 tab 12/09/16 [Rx] Allergies/Adverse Reactions: 3 Allergy/AdvReac Type Severity Reaction Status Date / Time No Known Allergies Allergy Verified 12/05/16 16:32 Procedures/tests Complete & Pending: Procedures Performed prior 72 hours Category Date Time Status EV echocardiogram Routine Y 12/06/16 13:26 Completed - Notes to Outpatient Provider 1. Patient's home med albuterol inhaler and albuterol nebulizer has been switched to xopenex to decrease heart rate effect. 2. Continue Levaquin for 5 more days. Taper down steroids as directed: 40 mg daily for 2 days, 20 mg daily for 3 days, 10 mg daily for 3 days. 3. Patient is educated to self manage her heart rate, if tachycardia happens again, she will come to the ER Date of admission: 12/05/16 20:51 Primary care physician: Andrez Thomas MD Consults: 12/05/16 23:02 Consult to Cardiology [CONS] Routine Comment: Consulting Provider: [facility] Reason for Consult: new onset AFIb Call Completed: No 12/07/16 11:03 Consult to Physician [CONS] Routine Consulting Provider: Joseph Roca Reason for Consult: Remove christi Call Completed: Yes Discharging clinician: Rocco Reed Anticipated date of discharge: 12/09/16 - Patient Status Disposition: Home, Self-Care Condition: Fair Functional capacity at discharge: uses cane/walker Overall status at discharge: patient is progressing back to baseline - Discharge Instructions Follow Up With: Andrez Thomas MD [Primary Care Provider] - 12/15/16 11:30 am - Diet and Activity Activity: increase activity as tolerated, wear oxygen at all times Diet: low salt diet Interval History: HPI: Ms. Steinberg is a 71 year old female with prior medical history of asthma, COPD, prior CTA, in one week status post bowel resection who presents to [facility] after having worsening cough and fever. Patient underwent robotic bowel resection one week ago with Dr. Roca, and his postop follow-up tomorrow, because of unresectable, precancerous polyps seen on colonoscopy. She reports that since the procedure she has been having worsening cough that has been productive of yellow/green phlegm. This is worsening for the past week patient reports that she has had fever at home with high 101.3. She does not complain of any shortness of breath, but states she feels some fatigue as well as weakness when ambulating. She denies any mental status changes or loss of consciousness, denies chest pain, denies feeling faint or lightheadedness. She denies any urinary symptoms, constipation/diarrhea, blood in her stool. Hospital course: Ms. Steinberg is a 71 year old female admitted for healthcare associated pneumonia, COPD exacerbation, and A. fib RVR. Patient has new onset A. fib. Cardiology consult was called. Patient was placed on Eliquis. Patient was treated with antibiotic, steroid, bronchodilator, Cardizem drip. After treatment, her shortness of breath has improved. Her cough is less. Her heart rate is well controlled with by mouth Cardizem. Patient will discharge home and continue antibiotic and taper down steroids. We will continue by mouth Cardizem for heart rate control. I saw and examined the patient today. Still coughing but less. Oxygen saturation 92-96% on 2 L oxygen. Patient has home oxygen already. Will discharge patient home and follow up with PCP as outpatient - Time Spent with Patient Total time spent providing and/or coordinating discharge services: 40 minutes Greater than 30 minutes - Constitutional Vitals: Temp Pulse Resp BP Pulse Ox 98.6 F 105 16 109/60 92 12/09/16 10:41 12/09/16 10:41 12/09/16 10:42 12/09/16 10:41 12/09/16 10:42 General appearance: Present: A&O X 3, pleasant, no acute distress, answers questions appropriately - Head Head exam: Present: atraumatic, normocephalic - Eye Eye exam: Present: PERRL, conjuntiva pink, sclera anicteric Pupils: Present: PERRL - Neck Neck exam general surgery: Present: supple, trachea midline. Absent: lymphadenopathy - Respiratory Respiratory exam: Present: CTAB. Absent: accessory muscle use, rales, rhonchi, wheezes - Cardiovascular Cardiovascular exam: Present: RRR, +S1, +S2. Absent: diastolic murmur, gallop, rubs, systolic murmur - GI/Abdominal GI/Abdominal exam: Present: normal bowel sounds, soft, no peritoneal signs. Absent: distended, tenderness - Extremities Exam Extremities exam: Present: warm, radial pulses palpable and symmetrical. Absent : calf tenderness, cyanotic, pedal edema - Neurological Exam Neurological exam: Present: CN II-XII intact, oriented X3, no focal deficits. Absent: pronater drift, facial droop, speech deficit - Skin Skin exam: Present: dry, intact
[2016-12-09] MEDS ORDERED: Aminoglycoside Consult 1 EACH MC ONE (17:23)
[2016-12-10] MEDS ORDERED: levoFLOXacin 750 MG TABLET PO SCH (09:00)
== END 2016-12-09 17:24 | disposition home or self-care (01) | DRG 190 ==
LOC: EMEROO 16:25 → 2NENU 16:25 → SUATTDRO 20:51
PROVIDERS: ADMIT Family Medicine; ATTEND Internal Medicine